=== PATIENT | female | born 2000 | race Caucasian/White ===

== ENCOUNTER 2019-07-01 22:05 | Emergency (ER) | payer SELFPAY ==
[2019-07-01 22:19] VITALS: BP 115/80
== END 2019-07-01 23:54 | disposition left against medical advice (07) ==
LOC: ED 22:05
DX: S59.901A Unspecified injury of right elbow, initial encounter (principal); S00.31XA Abrasion of nose, initial encounter; S00.81XA Abrasion of other part of head, initial encounter; W10.9XXA Fall (on) (from) unspecified stairs and steps, initial encounter; Y92.9 Unspecified place or not applicable; Z53.21 Procedure and treatment not carried out due to patient leaving prior to being seen by health care provider